=== PATIENT | female | born 1965 | race Caucasian/White ===

== ENCOUNTER → 2016-09-25 | Outpatient (CLI) | payer OTHER ==
--- NOTE | 2016-09-26 18:07 | BD ---
EXAMINATION TYPE: MG DEXA axial skeleton. DATE OF EXAM: 09/25/2016 4:19 PM COMPARISON: NONE CLINICAL HISTORY: 51-year-old female postmenopausal without HRT. Height: 62.5 IN Weight: 155 LBS FRAX RISK QUESTIONS: Alcohol (3 or more units per day): NO Family History (Parent hip fracture): YES MOTHER Glucocorticoids (More than 3mos): NO (Ex: prednisone, prednisolone, methylprednisolone, dexamethasone, and hydrocortisone). History of Fracture in Adulthood: NO Secondary Osteoporosis: 1. Type 1 Diabetes: NO 2. Hyperthyroidism: NO 3. Menopause before 45: NO 4. Malnutrition: NO 5. Chronic liver disease: NO Rheumatoid Arthritis: NO Current Tobacco Use: YES RISK FACTORS HISTORY OF: Smoke tobacco: YES Active: YES Diet low in dairy products/other sources of calcium: YES If Premenopausal, do you have irregular periods: YES Take estrogen and/or progesterone medications: NOT NOW How long: CONTROL AGE 18 -25 MEDICATIONS: Additional Medications: VIT D, TOPOMAX, NORCO, VALIUM, KLORCON, PRILOSEC, CLARITIN, CYMBALTA, HCTZ, EXAM MEASUREMENTS: Bone mineral densitometry was performed using the [employer] System. Bone mineral density as measured about the Lumbar spine is: ----- L1-L4(G/cm2): 1.570 T Score Values are as follows: ----- L2: 2.7 ----- L3: 3.1 ----- L4: 3.8 ----- L1-L4: 3.2 Bone mineral density BASELINE Bone mineral density about the R hip (g/cm2): 1.377 Bone mineral density about the L hip (g/cm2): 1.416 T Score values are as follows: -----R Neck: 2.4 -----L Neck: 2.7 -----R Intertrochanter: 3.2 -----L Intertrochanter: 1.7 Bone mineral density BASELINE IMPRESSION: Normal bone mineral density as measured in the lumbar spine and both hips. Rescreen in 5 years. NOTE: T-SCORE=SD OF THE YOUNG ADULT MEAN.
== END | disposition home or self-care (01) ==
LOC: RADBDWWP 16:17
PROVIDERS: ATTEND Internal Medicine
DX: Z78.0 Asymptomatic menopausal state (principal)
CPT/HCPCS: 77080

== ENCOUNTER → 2017-12-09 | Outpatient (CLI) | payer OTHER ==
[2017-12-10 01:20] LABS: Rheumatoid Factor 7 IU/mL (0-15)
== END | disposition home or self-care (01) ==
LOC: LABWHC1 15:54
PROVIDERS: ATTEND Physician Assistant
DX: M13.0 Polyarthritis, unspecified (principal); M79.1 Myalgia
CPT/HCPCS: 36415; 82085; 82306; 82550; 82607; 84207; 86038; 86140; 86431

== ENCOUNTER → 2017-12-18 | Outpatient (CLI) | payer OTHER ==
--- NOTE | 2017-12-18 23:21 | MR ---
EXAMINATION TYPE: MR cspine/lspine wo con DATE OF EXAM: 12/18/2017 COMPARISON: MRI lumbar spine March 12, 2013. HISTORY: Cervicalgia and low back pain per order. Headache with neck pain for a few years causing randal n or weakness in both arms and fingers per patient. Low back pain since 2003 extending into bilateral lower extremities per patient. TECHNIQUE: Multiplanar, multisequence imaging of the cervical and lumbar spine are performed without IV contrast. FINDINGS: C-SPINE: FINDINGS: Sagittal images of the cervical spine show the craniocervical junction to appear within nor mal limits. The cervical and upper thoracic spinal cord is normal in course, caliber, and signal. V ertebral alignment is anatomic. There is mild disc space narrowing C6/C7 level. The vertebral body a nd intravertebral disk heights otherwise are normal. Posterior disc herniation C6-C7 level is noted o n sagittal images anterior thecal sac indenting the ventral surface of spinal cord. The bone marrow signal intensity is within normal limits. No significant spurring is seen. Axial images show the C2-C3 level to appear within normal limits. Axial images at C3-C4 level show mild uncovertebral facet arthropathy bilaterally and small central d isc protrusion mildly effaces the anterior thecal sac, right-sided neural foramen is mildly narrowed. Left-sided neural foramina is patent. Axial images at C4-C5 level shows a tiny central disc protrusion and in and mild uncovertebral facet arthropathy bilaterally, there is mild effacement of the anterior thecal sac, bilateral neural forami na are patent. Axial images at C5-C6 level shows mild uncovertebral facet arthropathy with broad-based posterior dis c protrusion mildly effacing the anterior thecal sac and causing mild right-sided neural foraminal na rrowing. The central foramen is patent. Axial images at C6-C7 level show broad-based left paracentral disc protrusion effacing the anterior t hecal sac and abuts the ventral surface of spinal cord which is flattened. There is mild to moderate bilateral neural foraminal narrowing at this level identified. Axial images at the C7-T1 level are felt within normal limits. IMPRESSION: Multilevel degenerative changes of the cervical spine with most prominent disc herniation noted at C6-C7 level. L-SPINE: Sagittal images of the lumbar spine show vertebral body heights and alignment to remain satisfactory. There is redemonstration of disc desiccation with mild disc space narrowing L4-L5 level along with p osterior disc herniation on sagittal images. There is new disc desiccation L2-L3 and L5-S1 levels. Th ere is new mild disc space narrowing and small posterior disc herniation L-2-L3 level on sagittal atilio ges. The conus medullaris remains normal in position and signal ending mid to posterior L1 level. Th e bone marrow signal intensity is within normal limits. Minimal multilevel anterior spurring is prese nt. Axial images show the T12-L1 and L1-L2 levels to remain within normal limits. Axial images at the L2-L3 level shows more prominent mild broad-based posterior disc protrusion mildl y effaces anterior thecal sac on axial image 18. Bilateral neural foramina are patent. No significant change from prior. Axial images at L3-L4 level shows new mild facet arthropathy bilaterally. Spinal canal is preserved. Bilateral neuroforamina are patent. Axial images at L4-L5 level demonstrates moderate to severe facet degenerative changes and ligamentum flavum hypertrophy effacing bilateral posterior lateral thecal sac on axial image 8. There is broad disc bulge with central disc protrusion component effacing the anterior thecal sac. Annular tear is r edemonstrated. Prominent spinal canal effacement or stenosis is seen at this level without significan t change from prior. There is moderate bilateral anterior inferior neural foraminal narrowing with so me encroachment on right L4 nerve suspected sagittal image 12 not significantly changed from prior. Axial images at L5-S1 level redemonstrate moderate facet degenerative changes bilaterally. There is b road-based posterior disc protrusion redemonstrated slightly more prominent right lateral component. Spinal canal is preserved. Bilateral neural foramina remain patent. No significant change from prior. There is partial visualization of 3.2 cm thin-walled T2 hyperintense suspect a cystic lesion upper me dial pole of the right kidney axial image 30 without significant change from prior. IMPRESSION: Multilevel degenerative changes in the lumbar spine as detailed above, most prominent fin dings redemonstrated L4-L5 level without significant progression. Some interval progression of degene rative changes mid lumbar spine is seen as detailed above.
== END | disposition home or self-care (01) ==
LOC: RADMRIMAIN 15:08
PROVIDERS: ATTEND Psychiatry & Neurology Neurology
DX: M50.223 Other cervical disc displacement at C6-C7 level (principal); M51.26 Other intervertebral disc displacement, lumbar region; M47.816 Spondylosis without myelopathy or radiculopathy, lumbar region; Z88.8 Allergy status to other drugs, medicaments and biological substances
CPT/HCPCS: 72141; 72148

== ENCOUNTER → 2019-04-22 | Outpatient (CLI) | payer OTHER ==
--- NOTE | 2019-04-23 04:17 | XR ---
EXAMINATION TYPE: XR chest 2V DATE OF EXAM: 04/22/2019 COMPARISON: 06/19/2016 HISTORY: 53-year-old female with cough TECHNIQUE: Frontal and lateral views FINDINGS: The cardiomediastinal silhouette, aorta, and pulmonary vasculature are within normal limits. Hazy den sities within the peripheral and lower lungs related to overlying soft tissue. There may be mild cent ral peribronchial cuffing. No consolidation or pleural effusion. IMPRESSION: Suggestion of subtle mild central peribronchial cuffing could reflect bronchitis or asthma. No eviden ce for pneumonia.
== END | disposition home or self-care (01) ==
LOC: RADXRMAIN 17:47
PROVIDERS: ATTEND Family Medicine
DX: R05 Cough (principal); E83.52 Hypercalcemia
CPT/HCPCS: 71046

== ENCOUNTER → 2019-11-24 | Outpatient (CLI) | payer OTHER ==
[2019-11-25 01:47] LABS: Anti-DNA, DS unit <1.0 IU/mL; Anti-Smith Ab Interp NEGATIVE (NEGATIVE); Cyclic Citrull Pep IgG Unit <0.5 U/mL; Cyclic Citrullinated Pep IgG NEGATIVE (NEGATIVE); DNA Double-Stranded NEGATIVE (NEGATIVE); JO-1 IgG Antibody <0.2 AI; Scleroderma SC-70 Ab <0.2 AI
== END | disposition home or self-care (01) ==
LOC: LABWHC1 14:52
PROVIDERS: ATTEND Nurse Practitioner Family
DX: M25.50 Pain in unspecified joint (principal)
CPT/HCPCS: 36415; 83516; 86038; 86200; 86225; 86235

== ENCOUNTER → 2020-04-05 | Outpatient (CLI) | payer OTHER ==
--- NOTE | 2020-04-06 07:21 | CTL ---
EXAMINATION TYPE: CT Low Dose Lung DATE OF EXAM ORDERED: 04/05/2020 COMPARISON: None HISTORY: . Low Dose CT Lung Screening CT DLP: 113.[address] CTDI: 3.3 mGy IV CONTRAST USED: None. SCREENING VISIT: First visit COMPARISON: None. TECHNIQUE: Low dose computed tomography scan was performed through the chest at 1 millimeter thick se ctions and reconstructed images in the coronal plane at [address] DIAGNOSTIC QUALITY: Satisfactory FINDINGS: LUNG NODULES: Not presentLeft lung: no nodules identified.Right lung: no nodules identified. LUNGS: COPD: Severity: None Fibrosis: Severity:None Lymph nodes: None Other findings: None RIGHT PLEURAL SPACE: Effusion: None Calcification: None Thickening: None Pneumothorax: None LEFT PLEURAL SPACE: Effusion: None Calcification: None Thickening: None Pneumothorax: None HEART: Heart Size: Mildly enlarged Coronary calcification: Mild Pericardial effusion: None OTHER FINDINGS: Upper abdomen: No significant abnormality Bony thorax: Degenerative changes Supraclavicular region: No significant abnormalityOther: No significant abnormalityI IMPRESSION: No distinct pulmonary nodularity identified at this time. FOLLOW UP CT CHEST RECOMMENDATION: Follow-up screening in one year. Smoking cessation is advised. CT LUNG RAD: LUNG RAD CATEGORY 1 negative
== END | disposition home or self-care (01) ==
LOC: RADCTMAIN 16:39
PROVIDERS: ATTEND Family Medicine
DX: Z12.2 Encounter for screening for malignant neoplasm of respiratory organs (principal); F17.210 Nicotine dependence, cigarettes, uncomplicated

== ENCOUNTER → 2020-08-05 | Outpatient (CLI) | payer OTHER ==
[2020-08-06 00:20] LABS: HCT 45.5 % (37.2-46.3); HGB 15.3 g/dL (12.0-15.0); MCH 31.5 pg (27.0-32.0); MCHC 33.6 g/dL (32.0-37.0); MCV 93.6 fL (80.0-97.0); Mean Platelet Volume 11.9 fL (9.5-12.2); Platelet Count 302 X 10*3/uL (140-440); RBC 4.86 X 10*6/uL (4.10-5.20); WBC 13.79 X 10*3/uL (4.50-10.00)
[2020-08-06 04:16] LABS: C Reactive Protein <0.4 mg/dL (0.0-0.8); Rheumatoid Factor, Qnt 9 IU/mL (0-15)
== END | disposition home or self-care (01) ==
LOC: LABWHC1 14:10
PROVIDERS: ATTEND Nurse Practitioner Family
DX: K92.2 Gastrointestinal hemorrhage, unspecified (principal); M25.59 Pain in other specified joint
CPT/HCPCS: 36415; 85027; 86140; 86431

== ENCOUNTER → 2021-03-10 | Outpatient (CLI) | payer MEDICARE, OTHER ==
[2021-03-11 05:11] LABS: African American GFR (CKD) 95.5 (60.0-200.0); Anion Gap 10.3 mmol/L (4.00-12.00); BUN/Creat Ratio 21.25 Ratio (12.00-20.00); Calcium 10.1 mg/dL (8.7-10.3); Carbon Dioxide 26.7 mmol/L (21.6-31.8); Non-African American GFR(CKD) 82.4 (60.0-200.0); Potassium 4.5 mmol/L (3.5-5.5)
== END | disposition home or self-care (01) ==
LOC: LABWHC1 10:35
PROVIDERS: ATTEND Family Medicine
DX: N18.30 Chronic kidney disease, stage 3 unspecified (principal)
CPT/HCPCS: 36415; 80048

== ENCOUNTER → 2021-05-22 | Outpatient (CLI) | payer MEDICARE, OTHER ==
--- NOTE | 2021-05-22 13:30 | CTL ---
EXAMINATION TYPE: CT Low Dose Lung DATE OF EXAM ORDERED: 05/22/2021 HISTORY: History of tobacco use,. Lung cancer screening CT DLP: 126.[address] CTDI: 3.7 mGy Automated exposure control for dose reduction was used. SCREENING VISIT: Subsequent COMPARISON: 04/05/2020 TECHNIQUE: Low dose computed tomography scan was performed through the chest at 1 mm thick sections a nd reconstructed images in the coronal plane at [address] DIAGNOSTIC QUALITY: Satisfactory FINDINGS: LUNG NODULES: None. LUNGS: COPD: Severity: None Fibrosis: Severity: None Lymph nodes: None Other findings: None RIGHT PLEURAL SPACE: Effusion: None Calcification: None Thickening: None Pneumothorax: None LEFT PLEURAL SPACE: Effusion: None Calcification: None Thickening: None Pneumothorax: None HEART: Heart Size: Normal Coronary calcification: Very minimal Pericardial effusion: None OTHER FINDINGS: Upper abdomen: Normal Bony thorax: Normal Supraclavicular region: Normal Other: Ascending thoracic aorta at the level the main pulmonary artery measures 3.4 cm. The main pul monary artery at the bifurcation measures 2.2 cm. IMPRESSION: 1. Negative low-dose CT chest FOLLOW UP CT CHEST RECOMMENDATION: Yes, follow-up screening low-dose CT chest one year. CT LUNG RAD: 1
== END | disposition home or self-care (01) ==
LOC: RADCTMAIN 12:32
PROVIDERS: ATTEND Family Medicine
DX: Z12.2 Encounter for screening for malignant neoplasm of respiratory organs (principal); Z87.891 Personal history of nicotine dependence
CPT/HCPCS: 71271

== ENCOUNTER → 2022-05-14 | Outpatient (CLI) | payer MEDICARE, OTHER ==
[2022-05-14 23:38] LABS: African American GFR (CKD) 103.6 (60.0-200.0); Albumin 4.6 g/dL (3.8-4.9); Albumin/Globulin Ratio 1.99 (1.60-3.17); Anion Gap 8.8 mmol/L (10.00-18.00); BUN/Creat Ratio 22.58 Ratio (12.00-20.00); Blood Urea Nitrogen 16.8 mg/dL (9.0-27.0); Calcium 10.5 mg/dL (8.7-10.3); Globulin 2.3 g/dL (1.6-3.3); Non-African American GFR(CKD) 89.3 (60.0-200.0); Total Bilirubin 0.3 mg/dL (0.30-1.20); Total Protein 6.9 g/dL (6.2-8.2)
== END | disposition home or self-care (01) ==
LOC: LABWHC1 15:00
PROVIDERS: ATTEND Psychiatry & Neurology Neurology
DX: Z01.812 Encounter for preprocedural laboratory examination (principal); Z51.81 Encounter for therapeutic drug level monitoring
CPT/HCPCS: 36415; 80053; 93005

== ENCOUNTER → 2024-01-15 | Outpatient (CLI) | payer MEDICARE, OTHER ==
[2024-01-15 15:23] LABS: Chol/HDL Ratio 3.31 Ratio; LDL Cholesterol,Calculated 44.7 mg/dL (0.0-131.0)
== END | disposition home or self-care (01) ==
LOC: LABWHC1 09:22
PROVIDERS: ATTEND Family Medicine
DX: F41.1 Generalized anxiety disorder (principal); E78.5 Hyperlipidemia, unspecified
CPT/HCPCS: 36415; 80061; 84443

== ENCOUNTER → 2024-09-24 | Outpatient (CLI) | payer MEDICARE ==
--- NOTE | 2024-09-24 09:58 | XR ---
EXAMINATION TYPE: XR hand complete RT DATE OF EXAM: 09/24/2024 9:33 AM COMPARISON: None CLINICAL INDICATION: Female, 59 years old with history of M79.641 R hand pain; PHH, pain TECHNIQUE: XR hand complete RT 3 views were obtained. FINDINGS: Normal alignment of the visualized joints. No acute osseous pathology is identified. No e vidence of soft tissue swelling. Multifocal degeneration changes with joint space narrowing and osteo phyte formation an worse at the second digit interphalangeal joint. Third digit is without evidence o f fracture. IMPRESSION: 1. No acute osseous pathology. 2. Multifocal osteoarthrosis throughout the joints of the hand worse at the interphalangeal joint of the second digit [facility], , 09/24/2024 9:55 AM
== END | disposition home or self-care (01) ==
LOC: RADXRMAIN 09:07
PROVIDERS: ATTEND Family Medicine
DX: M19.041 Primary osteoarthritis, right hand (principal)